=== PATIENT | female | born 1950 | race Native Hawaiian/Other Pacific Islander ===

== ENCOUNTER 2017-05-05 09:07 | Outpatient (CLI) | payer OTHER, BC | END 2017-05-05 19:05 | disposition home or self-care (01) | LOC: RAD 09:07 | DX: J20.8 Acute bronchitis due to other specified organisms (principal) ==

== ENCOUNTER 2018-01-21 03:26 | Emergency (ER) | payer OTHER, BC ==
[~2018-01-21] VITALS: Ht 165.1 cm; Wt 72.6 kg
[2018-01-21 03:59] LABS: PLATELET COUNT 206 K/uL (152-353)
[2018-01-21 04:07] LABS: POTASSIUM 3.4 mmol/L (3.6-5.2)
[2018-01-21 05:18] VITALS: BP 161/77; TEMP 98.1
== END 2018-01-21 05:22 | disposition home or self-care (01) ==
LOC: ED 03:26
DX: J02.0 Streptococcal pharyngitis (principal); J01.80 Other acute sinusitis
CPT/HCPCS: 36415; 80053; 85027; 87804; 87880; 96374; 96375; 99284; J0696; J2930

== ENCOUNTER 2018-09-25 16:33 | Emergency (ER) | payer OTHER, BC ==
[~2018-09-25] VITALS: Ht 165.1 cm; Wt 77.1 kg
[2018-09-25] MEDS ORDERED: ARMOUR THYROID30 MG PO (16:44)
[2018-09-25] MEDS ORDERED: METOPROLOL25 M1 PO (16:44)
[2018-09-25] MEDS ORDERED: CLON0.5T36 PO (16:45)
[2018-09-25 17:46] LABS: PLATELET COUNT 161 K/uL (152-353)
[2018-09-25 17:54] LABS: POTASSIUM 3.6 mmol/L (3.6-5.2)
[2018-09-25 18:55] VITALS: BP 131/78; TEMP 97.8
== END 2018-09-25 18:55 | disposition home or self-care (01) ==
LOC: ED 16:33
PROVIDERS: Family Medicine
DX: L50.8 Other urticaria (principal); L25.9 Unspecified contact dermatitis, unspecified cause
CPT/HCPCS: 36415; 80053; 81000; 85027; 96372; 99283; J2930

== ENCOUNTER 2018-10-25 08:21 | Emergency (ER) | payer OTHER, BC ==
[~2018-10-25] VITALS: Ht 165.1 cm; Wt 77.1 kg
[~2018-10-25 08:21] MED LIST: ARMOUR THYROID30 MG PO; CLON0.5T36 PO; METOPROLOL25 M1 PO
[2018-10-25 08:29] VITALS: TEMP 97.5
[2018-10-25 09:17] LABS: PLATELET COUNT 202 K/uL (152-353)
[2018-10-25 09:24] LABS: POTASSIUM 4.1 mmol/L (3.6-5.2)
[2018-10-25 10:46] VITALS: BP 158/78
== END 2018-10-25 10:47 | disposition home or self-care (01) ==
LOC: ED 08:21
DX: M54.12 Radiculopathy, cervical region (principal); M50.820 Other cervical disc disorders, mid-cervical region, unspecified level
CPT/HCPCS: 36415; 80053; 85027; 85651; 99283

== ENCOUNTER 2019-06-18 10:31 | Outpatient (CLI) | payer OTHER, BC | END 2019-06-18 20:55 | disposition home or self-care (01) | LOC: LABW 10:31 | DX: Z87.440 Personal history of urinary (tract) infections (principal) | CPT/HCPCS: 81000 ==

== ENCOUNTER 2020-01-01 10:03 | Outpatient (CLI) | payer OTHER, BC | END 2020-01-01 19:23 | disposition home or self-care (01) | LOC: LABW 10:03 | DX: R30.0 Dysuria (principal) | CPT/HCPCS: 81000 ==

== ENCOUNTER 2021-04-13 10:55 | Outpatient (CLI) | payer BC | END 2021-04-13 22:42 | disposition home or self-care (01) | LOC: MRI 10:55 | PROVIDERS: ATTEND Ophthalmology | DX: H47.323 Drusen of optic disc, bilateral (principal) ==

== ENCOUNTER 2021-05-21 08:02 | Outpatient (CLI) | payer BC | END 2021-05-21 22:49 | disposition home or self-care (01) | LOC: RESP 08:02 | PROVIDERS: ATTEND Nurse Practitioner Family | DX: R06.02 Shortness of breath (principal) ==

== ENCOUNTER 2022-05-06 08:26 | Outpatient (CLI) | payer BC | END 2022-05-06 21:15 | disposition home or self-care (01) | LOC: LABW 08:26 | PROVIDERS: ATTEND Internal Medicine | DX: R31.29 Other microscopic hematuria (principal); R53.83 Other fatigue; R80.1 Persistent proteinuria, unspecified; E03.8 Other specified hypothyroidism; R79.89 Other specified abnormal findings of blood chemistry | CPT/HCPCS: 36415; 82570; 82607; 82728; 82746; 83036; 83540; 83550; 84156; 84165; 84166; 84439; 84443; 85652; 86037; 86038; 86160; 86225 ==

== ENCOUNTER 2022-08-15 11:08 | Outpatient (CLI) | payer BC | END 2022-08-15 19:03 | disposition home or self-care (01) | LOC: RAD 11:08 | PROVIDERS: ATTEND Nurse Practitioner Family | DX: M35.01 Sjogren syndrome with keratoconjunctivitis (principal); Z79.899 Other long term (current) drug therapy ==

== ENCOUNTER 2022-11-01 01:35 | Emergency (ER) | payer BC ==
[~2022-11-01] VITALS: Ht 165.1 cm; Wt 77.1 kg
[2022-11-01 02:10] VITALS: BP 171/80; TEMP 97.3
== END 2022-11-01 03:15 | disposition home or self-care (01) ==
LOC: ED 01:35
DX: U07.1 COVID-19 (principal); J40 Bronchitis, not specified as acute or chronic
CPT/HCPCS: 87502; 87635; 87651; 99283; U0003

== ENCOUNTER 2022-12-07 08:51 | Outpatient (CLI) | payer BC | END 2022-12-07 19:06 | disposition home or self-care (01) | LOC: RESP 08:51 | PROVIDERS: ATTEND Nurse Practitioner Family | DX: M35.01 Sjogren syndrome with keratoconjunctivitis (principal); Z79.899 Other long term (current) drug therapy ==

== ENCOUNTER 2022-12-13 01:52 | Emergency (ER) | payer BC ==
[~2022-12-13] VITALS: Ht 165.1 cm; Wt 76.7 kg
[2022-12-13 01:52] VITALS: TEMP 98.2
[2022-12-13 02:53] LABS: PLATELET COUNT 296 K/uL (152-353)
[2022-12-13 03:00] LABS: POTASSIUM 3.4 mmol/L (3.6-5.2)
[2022-12-13 03:07] LABS: PARTIAL THROMBOPLASTIN TIME 25.9 SECONDS (24.5-33.6)
[2022-12-13 08:28] VITALS: BP 123/60
== END 2022-12-13 08:31 | disposition short-term general hospital (02) ==
LOC: ED 01:52
PROVIDERS: Emergency Medicine Emergency Medical Services
DX: I21.4 Non-ST elevation (NSTEMI) myocardial infarction (principal); I48.91 Unspecified atrial fibrillation; K85.90 Acute pancreatitis without necrosis or infection, unspecified; I10 Essential (primary) hypertension
CPT/HCPCS: 36415; 80053; 81002; 82150; 83690; 83735; 84443; 84484; 85027; 85610; 85730; 93005; 96361; 96365; 96366; 96372; 96375; 96376; 99284; J1650; J2405; J3490

== ENCOUNTER 2023-01-30 07:56 | Outpatient (CLI) | payer BC | END 2023-01-30 18:55 | disposition home or self-care (01) | LOC: MRI 07:56 | PROVIDERS: ATTEND Internal Medicine Gastroenterology | DX: Q45.3 Other congenital malformations of pancreas and pancreatic duct (principal) | CPT/HCPCS: 36415; 82565; 84520; A9576 ==

== ENCOUNTER 2023-03-22 09:22 | Outpatient (CLI) | payer BC ==
[2023-03-22 09:52] LABS: PLATELET COUNT 210 K/uL (152-353)
[2023-03-22 10:12] LABS: POTASSIUM 3.7 mmol/L (3.6-5.2)
== END 2023-03-22 20:36 | disposition home or self-care (01) ==
LOC: LABW 09:22
PROVIDERS: ATTEND Internal Medicine
DX: I12.9 Hypertensive chronic kidney disease with stage 1 through stage 4 chronic kidney disease, or unspecified chronic kidney disease (principal); R53.83 Other fatigue; E03.8 Other specified hypothyroidism; N18.9 Chronic kidney disease, unspecified; Z79.899 Other long term (current) drug therapy
CPT/HCPCS: 36415; 80053; 82043; 82570; 82607; 82728; 82746; 83036; 83540; 83550; 83735; 84100; 84156; 84439; 84443; 85027

== ENCOUNTER 2023-07-13 07:16 | Emergency (ER) | payer BC ==
[~2023-07-13] VITALS: Ht 165.1 cm; Wt 73.9 kg
[2023-07-13 07:20] VITALS: TEMP 98.7
[2023-07-13 08:06] LABS: PLATELET COUNT 225 K/uL (152-353)
[2023-07-13 08:09] LABS: POTASSIUM 4.2 mmol/L (3.6-5.2)
[2023-07-13 09:44] VITALS: BP 151/53
== END 2023-07-13 09:44 | disposition home or self-care (01) ==
LOC: ED 07:16
PROVIDERS: Family Medicine
DX: M10.9 Gout, unspecified (principal); E86.0 Dehydration; M79.672 Pain in left foot
CPT/HCPCS: 36415; 80053; 81002; 84550; 85027; 96361; 96374; 96375; 99284; J1885; J2930